=== PATIENT | male | born 2000 | race African-American/Black ===

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

== ENCOUNTER 2018-05-24 16:06 | Emergency (ER) | payer OTHER ==
[2018-05-24 16:45] VITALS: BP 129/81
[2018-05-24 16:57] LABS: ABS Basophils 0.1 10^3/ul (0-0.2); ABS Eosinophils 0.4 10^3/ul (0-0.6); ABS Lymphocytes 1.7 10^3/ul (1.0-4.8); ABS Monocytes 0.6 10^3/ul (0-0.8); ABS Neutrophils 3.2 10^3/ul (1.5-7.7); ABS Nucleated RBC 0 10^3/ul; Eosinophil % 6.6 % (0-6); Hematocrit 39 % (42-52); Hemoglobin 12.7 g/dl (14.0-18.0); Lymphocyte % 27.9 % (25-47); Mean Corpuscular HGB Conc 33 g/dl (31-36); Mean Corpuscular Hemoglobin 27 pg (27-31); Mean Corpuscular Volume 82 fL (80-94); Mean Platelet Volume 7.7 um3 (7.4-10.4); Nucleated Red Blood Cells % 0.1; Platelet Count 316 10^3/ul (150-450); Red Blood Count 4.72 10^6/ul (4.00-5.40); Red Cell Distribution Width 15 % (10.5-15)
[2018-05-24 17:14] LABS: EGFR Non-African American 114.6 (>60)
--- NOTE | 2018-05-24 20:21 | ED ---
Jeremy Monzon Natalie, scribed for Al Mayer MD on 05/24/18 at 1654 . Neck Pain - HPI Summary HPI Summary: The patient is a 17 [facility] that started a few days ago. He has been having some episodes of diarrhea with some hematochezia and abd distension with BM. He additionally c/o yellowing of eyes, fatigue, dehydration, and weight loss. He denies swelling in knees and fever. The pt is concerned that this is related to his Crohn's disease. He is often in pain but states that this pain is worse than usual. He rates the pain 6/10 in severity. The pt has had an ileoscopy a few years ago, which has relieved his pain dramatically. He does not take any medication for Crohn's now, but he used to take Humira, Prevacid, and Mercaptopurine before his surgery. His GI doctor is Dr. Garrett. - History of Current Complaint Chief Complaint: EDNeckComplaint Stated Complaint: CROHNS/WEAKNESS/FATIGUE Time Seen by Provider: 05/24/18 16:28 Hx Obtained From: Patient Onset/Duration Of Injury/Symptoms: Days Timing: Constant, Lasting Days Onset/Duration: Sudden Onset, Still Present Severity Initially: Mild Severity Currently: Mild Pain Intensity: 6 Pain Scale Used: 0-10 Numeric Location: Diffuse Aggravating Factors: Nothing Alleviating Factors: Nothing Associated Signs & Symptoms: Positive: Negative - hematochezia. Negative: Fever - Allergies/Home Medications Allergies/Adverse Reactions: Allergies Allergy/AdvReac Type Severity Reaction Status Date / Time Adhesive Tape Allergy Rash And Verified 07/17/17 14:53 [Tegaderm Dressing] Itching bee venom protein (honey bee) Allergy Swelling Verified 05/24/18 16:14 chlorhexidine Allergy Rash And Verified 05/24/18 16:14 Itching NSAIDS (Non-Steroidal Allergy GI Upset Verified 05/24/18 16:14 Anti-Inflamma PMH/Surg Hx/FS Hx/Imm Hx Endocrine/Hematology History: Denies: Hx Anticoagulant Therapy, Hx Diabetes, Hx Thyroid Disease Cardiovascular History: Denies: Hx Hypertension, Hx Pacemaker/ICD Respiratory History: Reports: Hx Asthma - inhaler Denies: Hx Chronic Obstructive Pulmonary Disease (COPD) GI History: Reports: Hx Crohn's Disease, Hx Gastroesophageal Reflux Disease Denies: Hx Cirrhosis, Hx Diverticulosis, Hx Gall Bladder Disease, Hx Gastrointestinal Bleed, Hx Hiatal Hernia, Hx Irritable Bowel, Hx Jaundice, Hx Obstructive Bowel, Hx Ileostomy, Hx Pyloric Stenosis, Hx Ulcer, Other GI Disorders History: Denies: Hx Renal Disease Neurological History: Denies: Hx Dementia, Hx Seizures Psychiatric History: Reports: Hx Attention Deficit Hyperactivity Disorder Denies: Hx Substance Abuse - Surgical History Surgery Procedure, Year, and Place: hernia removed as an infant Hx Anesthesia Reactions: No - Immunization History Date of Tetanus Vaccine: 2017 Infectious Disease History: No Infectious Disease History: Denies: Hx Hepatitis, Hx Human Immunodeficiency Virus (HIV), Traveled Outside the [place] in Last 30 Days - Family History Known Family History: Positive: Other - Crohn's Disease (mother) - Social History Alcohol Use: None Hx Substance Use: No Substance Use Type: Reports: None Hx Tobacco Use: No Smoking Status (MU): Never Smoked Tobacco Have You Smoked in the Last Year: No Review of Systems Positive: Fatigue, Other - dehydrated, weight loss. Negative: Fever Eyes: Other - yellowing to eyes Positive: Diarrhea, Other - distension in abd before BM, weight loss, hematochezia Musculoskeletal: Negative - no swelling in knees Positive: Other - neck pain All Other Systems Reviewed And Are Negative: Yes Physical Exam - Summary Physical Exam Summary: Appearance: Well appearing, no pain distress Skin: warm, dry, reflects adequate perfusion Head/face: normal Eyes: EOMI, ARNOLD ENT: normal Neck: supple, non-tender Respiratory: CTA, breath sounds present Cardiovascular: RRR, pulses symmetrical Abdomen: non-tender, soft, surgical scar on RLQ Bowel Sounds: present Musculoskeletal: normal, strength/ROM intact Neuro: normal, sensory motor intact, A&Ox3 Triage Information Reviewed: Yes Vital Signs On Initial Exam: Initial Vitals Temp Pulse Resp BP Pulse Ox 99.2 F 58 18 130/70 99 05/24/18 16:09 05/24/18 16:09 05/24/18 16:09 05/24/18 16:09 05/24/18 16:09 Vital Signs Reviewed: Yes Diagnostics - Vital Signs Vital Signs Temp Pulse Resp BP Pulse Ox 05/24/18 16:09 99.2 F 58 18 130/70 99 - Laboratory Lab Results: Lab Results 07/01/18 07/01/18 Range/Units 16:50 16:50 WBC 6.0 (3.5-10.8) 10^3/ul RBC 4.72 (4.00-5.40) 10^6/ul Hgb 12.7 L (14.0-18.0) g/dl Hct 39 L (42-52) % MCV 82 (80-94) fL MCH 27 (27-31) pg MCHC 33 (31-36) g/dl RDW 15 (10.5-15) % Plt Count 316 (150-450) 10^3/ul MPV 7.7 (7.4-10.4) um3 Neut % (Auto) 54.4 (38-83) % Lymph % (Auto) 27.9 (25-47) % [place] % (Auto) 9.9 H (0-7) % Eos % (Auto) 6.6 H (0-6) % Baso % (Auto) 1.2 (0-2) % Absolute Neuts (auto) 3.2 (1.5-7.7) 10^3/ul Absolute Lymphs (auto) 1.7 (1.0-4.8) 10^3/ul Absolute Monos (auto) 0.6 (0-0.8) 10^3/ul Absolute Eos (auto) 0.4 (0-0.6) 10^3/ul Absolute Basos (auto) 0.1 (0-0.2) 10^3/ul Absolute Nucleated RBC 0 10^3/ul Nucleated RBC % 0.1 Sodium 140 (135-145) mmol/L Potassium 3.9 (3.5-5.0) mmol/L Chloride 104 (101-111) mmol/L Carbon Dioxide 30 (22-32) mmol/L Anion Gap 6 (2-11) mmol/L BUN 9 (6-24) mg/dL Creatinine 0.86 (0.67-1.17) mg/dL Est GFR ( Amer) 138.6 (>60) Est GFR (Non-Af Amer) 114.6 (>60) BUN/Creatinine Ratio 10.5 (8-20) Glucose 92 (70-100) mg/dL Calcium 8.8 (8.6-10.3) mg/dL C-Reactive Protein 17.28 H (<8.01) mg/L Result Diagrams: 05/24/18 16:50 05/24/18 16:50 Lab Statement: Any lab studies that have been ordered have been reviewed, and results considered in the medical decision making process. Re-Evaluation - Re-Evaluation First Eval Re-Evaluation Time: 17:17 Change: Unchanged - I spoke with the pt about blood work. He will be discharged home. Neck Course/Dx - Course Course Of Treatment: Patient presents with wanting laboratories to check on his Crohn's disease. He states he may have had some difficulties lately but mostly he is here because his mother thought he looked off. Laboratories show a slightly elevated CRP at 17 with normal white count. His hemoglobin is the best it's been on record here. His electrolytes are all within normal range. He has no pain at present or fever. He'll follow-up with his GI doctor tomorrow. - Diagnoses Provider Diagnoses: Crohn's disease Discharge - Sign-Out/Discharge Documenting (check all that apply): Discharge/Admit/Transfer - Pt will be discharged home. - Discharge Plan Condition: Good Disposition: HOME Patient Education Materials: Crohn Disease (ED) Referrals: Eulalio Garcia MD [Medical Doctor] - Jr Trevino MD [Primary Care Provider] - Additional Instructions: Call in the morning to follow-up with her process development associate. Her blood counts are better than they have been however at this facility. Return if fever, increased abdominal pain, worse, new symptoms or other concerns. - Billing Disposition and Condition Condition: GOOD Disposition: Home The documentation as recorded by the Jeremy heart Natalie accurately reflects the service I personally performed and the decisions made by me, Al Mayer MD.
== END 2018-05-24 17:35 | disposition home or self-care (01) ==
LOC: ED 16:06
DX: K50.90 Crohn's disease, unspecified, without complications (principal); M54.2 Cervicalgia; R53.83 Other fatigue
CPT/HCPCS: 36415; 80048; 85025; 86140; 99282

== ENCOUNTER 2018-09-28 16:43 | Emergency (ER) | payer OTHER ==
[2018-09-28 17:30] VITALS: BP 144/72
[2018-09-28] MEDS ORDERED: Tetan/Diph/Pertus SYR(Tdap)* 0.5 ML SYR(BOOSTRIX) use SYR IM ONE (17:43)
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
== END 2018-09-28 19:10 | disposition home or self-care (01) ==
LOC: UCEAST 16:43
DX: S09.90XA Unspecified injury of head, initial encounter (principal); S00.01XA Abrasion of scalp, initial encounter; Y04.8XXA Assault by other bodily force, initial encounter; Y92.9 Unspecified place or not applicable; Z23 Encounter for immunization; Z88.6 Allergy status to analgesic agent; Z91.030 Bee allergy status; Z91.048 Other nonmedicinal substance allergy status
CPT/HCPCS: 36415; 70450; 70486; 72125; 86703; 86706; 86803; 87340; 90471; 90715; 99212; G0463

== ENCOUNTER 2020-02-07 23:21 | Emergency (ER) | payer OTHER ==
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
--- OUTSIDE RECORDS SUMMARY | 2020-02-07 23:57 | XMS REPORT | Continuity of Care Document ---
:2000 External Reference #:[id number] Author Name RHINA Hernadez Address [address] [place] [address] Care Team Providers Name Role Phone [facility] Team Information [facility] - Pediatric Gastroenterology Jr Trevino MD - Family Care Team Information [facility] Medicine [facility] - Oncology Care Team Information [facility] [phone] Calvin Garcia - Pediatric Cardiology Care Team Information [facility] Problems Active Problems Provider Date Crohn's disease of small intestine Claire Roque M.D. Onset: 10/14/2011 Nocturnal enuresis RHINA Vargas Onset: 10/14/2011 Acute sinusitis Horacio Royal M.D. Onset: 08/03/2012 Acute pharyngitis Horacio Royal M.D. Onset: 08/03/2012 Asthma without status asthmaticus Horacio Royal M.D. Onset: 08/03/2012 Well child visit Jr Trevino M.D. Onset: 01/11/2013 Septicemia Unspecified Jr Trevino M.D. Onset: 02/11/2014 Edema Horacio Royal M.D. Onset: 02/22/2014 Pain in limb Horacio Royal M.D. Onset: 02/22/2014 Eruption Jr Trevino M.D. Onset: 04/27/2014 Pneumonia Jr Trevino M.D. Onset: 01/15/2016 Attention-deficit hyperactivity disorder, Jr Trevino M.D. Onset: other type Anxiety state Jr Trevino M.D. Onset: 04/21/2019 Mild intermittent asthma Horacio Royal M.D. Onset: 10/28/2017 Acute maxillary sinusitis Jr Trevino M.D. Onset: 11/29/2016 Crohn's disease of large bowel Jr Trevino M.D. Onset: 02/14/2016 Social History Type Date Description Comments Sex Unknown Tobacco Use Start: Unknown Nonsmoker Smoking Status Reviewed: 02/24/18 Nonsmoker Allergies, Adverse Reactions, Alerts Active Allergies Reaction Severity Comments Date NKDA 08/16/2011 Bee Sting 05/16/2015 Chlorahexadine rash 09/02/2017 Tape rash--can use paper tape 09/02/2017 Medications Active Medications SIG Qnty Indications Ordering Date Provider Pantoprazole Sodium Please specify 1Tablet Donavan Sargent 11/24/2019 Vishnu hawk M.D. 40mg Tablets DR refills and quantity Albuterol Sulfate Take 1-2 Puffs 4 6.7Inhaler J45.998 Jr Isabel 09/08/2019 HFA Times A Day as Virgilio Trevino 108(90Base) Needed mcg/Act Aerosol Ativan one tablet by 60tabs F41.9 03/09/2019 0.5mg mouth 2 times a Melodie, EDGE CUTTING MACHINE OPERATOR Tablets day as needed for anxiety Airduo Respiclick one inhalation 3units J06.9 02/04/2019 232/14 twice daily Melodie, EDGE CUTTING MACHINE OPERATOR 232-14mcg/Act Aerosol Peridex swish and spit 473ml K02.9 01/05/2019 0.12% 15ml for 30 Melodie, EDGE CUTTING MACHINE OPERATOR Solution seconds twice daily after brushing teeth Cetirizine HCL take 1 tablet by 30tabs 11/26/2016 10mg mouth every day Melodie, EDGE CUTTING MACHINE OPERATOR Tablets Remeron take 1/2 tablet 30tabs 10/23/2016 15mg by mouth at Melodie, EDGE CUTTING MACHINE OPERATOR Tablets bedtime for sleep History Medications Pantoprazole Sodium Please specify Devi Sargent 11/24/2019 - Vishnu hawk M.D. 12/24/[address] refills and quantity Azithromycin 2 take by mouth 6tabs J06.9 11/05/2019 - 250mg tablets today,then Melodie EDGE CUTTING MACHINE OPERATOR 12/24/2019 Tablets one tab days 2-5 until finished Medrol dose-pack as 1pack J06.9 [place] 11/05/2019 - 4mg Tablets instructed Melodie EDGE CUTTING MACHINE OPERATOR 12/24/2019 Medications Administered in Office Medication SIG Qnty Indications Ordering Provider Date Injection Rocephrin 250 MG Elissa Zelaya NP 06/03/2018 Injection Injection Subcutaneous Or Elissa Zelaya NP 06/03/2018 Intramuscular Injection TB Intradermal Test Isa Ramey 02/13/2012 Injection Immunizations CPT Code Status Date Vaccine Lot # [id number] Given 06/12/2017 Tdap Tetanus, W Pertussis [id number] 34524 Given 09/10/2016 Meningococcal Conjugate Vaccine,Serogroups For [id number] Intramuscular Use 71667 Given 09/19/2010 Varicella (Chicken Pox) Immunization [id number] 66095 Given 09/19/2010 Tdap Tetanus, W Pertussis [id number] 34279 Given 08/09/2004 Pediarix (dTap, ipv , & hep b) 70848 Given 08/09/2004 MMR Virus Immunization 84772 Given 08/16/2003 Hepatitis B Immunization, [place]-19 Years 15350 Given 11/09/2002 DTaP Immunization 98664 Given 11/09/2002 IPV Inactive Poliovirus Vaccine 30661 Given 11/09/2002 Hepatitis B Immunization, [place]-19 Years 90180 Given 08/11/2002 IPV Inactive Poliovirus Vaccine 82844 Given 07/29/2002 DTaP Immunization 76252 Given 07/29/2002 (Hib) Hemoplilus Influenza B 55742 Given 08/26/2001 Varicella (Chicken Pox) Immunization 69377 Given 08/26/2001 MMR Virus Immunization 44355 Given 08/26/2001 DTaP Immunization 41955 Given 01/16/1999 IPV Inactive Poliovirus Vaccine 66593 Given 01/16/1999 DTaP Immunization 13444 Given 01/16/1999 (Hib) Hemoplilus Influenza B Vital Signs Date Vital Result Comment 12/24/2019 2:58pm BP Systolic 102 mmHg BP Diastolic 80 mmHg Heart Rate 54 /min Body Temperature 99.0 F Height 68 inches 5'8" Weight 155.00 lb BMI (Body Mass Index) 23.6 kg/m2 11/05/2019 3:10pm BP Systolic 102 mmHg BP Diastolic 72 mmHg Heart Rate 68 /min Body Temperature 98.8 F Respiratory Rate 16 /min Height 68 inches 5'8" Weight 149.00 lb BMI (Body Mass Index) 22.7 kg/m2 Results Test Acquired Date Facility Test Result H/L Range Note Laboratory test 12/24/2019 [facility] Quickstrep Negative Negative finding (607)- - HIV 1&2 Antibody Screen (a) <pending> Negative Flu A&B (Fma) 12/24/2019 [facility] Influenza A Negative (607)- - Influenza B Negative Comprehensive Metabolic 09/08/2019 [facility](a) Sodium 140 mEq/L 134-149 Prof Potassium 4.7 mEq/L 3.6-5.5 Chloride 101 mEq/L 94-112 Carbon Dioxide 28 mEq/L 21-32 Glucose 82 mg/dL 70-105 BUN 11 mg/dL 6-26 Creatinine 1.0 mg/dL 0.6-1.4 BUN/Creat Ratio 11.0 CALC 8.0-36.0 Calcium 9.9 mg/dL 8.6-10.2 Total Protein 7.4 g/dL 6.4-8.3 Albumin 4.6 g/dL 3.8-5.5 Globulin 2.8 g/dL 2.0-4.8 A/G Ratio 1.6 CALC 0.6-2.3 Alk. Phosphatase 79 U/L 22-95 Alt (SGPT) 12 U/L 7-35 Ast (Sgot) 20 U/L 5-34 Total Bilirubin 0.4 mg/dL 0.2-1.3 GFR Non- >60 ml/min/1.73m^ >=60 GFR >60 ml/min/1.73m^ >=60 Laboratory test 09/08/2019 [facility] Sedimentation Rate 2mm finding (607)- - CBC Electronic (a 09/08/2019 [facility] WBC 5.84 4.0-10.0 New) (607)- - RBC 5.53 3.93-6.0 Hemoglobin (Fma/CMC/CTX) 15.4 g/dL 12.0-17.0 Hematocrit (Fma/CMC/CTX) 45.4 % 35.0-50.0 Mean Corpuscular Vol 82.1 fL 80-95 Mean Corpuscular Hemoglobin 27.8 pg 25.6-32.2 Mean Corpuscular Hemo Concen 33.9 g/dL 32.2-36.0 Platelets 289 10^3/ul 163-400 RDW-CV 13.3 11.6-14.4 Mean Platelet Volume 10.0 fL 8.0-12.4 Absolute Neutrophils BLD 3.59 1.56-6.13 Absolute Lymphocytes 1.07 Low 1.18-3.74 Absolute Monocytes BLD Auto 0.69 0.24-0.82 Absolute Eos Blood 0.40 0.04-0.54 Absolute Basophils 0.08 0.01-0.08 Neutrophil % 61.5 % 34.0-70.0 Lymph% 18.3 % Low 20.0-52.0 Monocytes % 11.8 % 5.0-12.0 Eos % 6.8 % 0.7-7.0 Basophil% 1.4 % High 0-1.2 Laboratory test 09/08/2019 [facility] HIV 1&2 Antibody Negative Negative finding (607)- - Screen (Fma) Laboratory test 09/08/2019 [facility] Syphillis Igg Negative Negative 1 finding W/Reflex RPR C Reactive Protein 22.42 mg/L High <8.01 2 1 [id number] 2 sst 2 [id number] 2 sst Procedures Date Code Description Status 03/19/2011 86835325 Colonoscopy Completed Medical Devices Description No Information Available Encounters Type Date Location Provider Dx Diagnosis Office Visit 11/05/2019 3:30p Main Office RHINA Hernadez J45.998 Other asthma J06.9 Acute upper respiratory infection, unspecified K50.00 Crohn's disease of small intestine without complications K02.9 Dental caries, unspecified Office Visit 09/08/2019 3:10p Main Office Jr Tristan1.9 Anxiety disorderUriel M.D. unspecified K50.00 Crohn's disease of small intestine without complications J45.998 Other asthma Z11.3 Encntr screen for infections w sexl mode of transmiss Z11.4 Encounter for screening for human immunodeficiency virus Assessments Date Code Description Provider 12/24/2019 R09.81 Nasal congestion RHINA Hernadez 12/24/2019 K02.9 Dental caries, unspecified Melodie, EDGE CUTTING MACHINE OPERATOR 12/24/2019 Z11.3 Encounter for screening for infections Melodie, EDGE CUTTING MACHINE OPERATOR with a predominantly sexual mode of transmission 11/05/2019 J45.998 Other asthma Melodie, EDGE CUTTING MACHINE OPERATOR 11/05/2019 J06.9 Acute upper respiratory infection, Melodie, EDGE CUTTING MACHINE OPERATOR unspecified 11/05/2019 K50.00 Crohn's disease of small intestine without Melodie, EDGE CUTTING MACHINE OPERATOR complications 11/05/2019 K02.9 Dental caries, unspecified Melodie, EDGE CUTTING MACHINE OPERATOR 09/08/2019 F41.9 Anxiety disorder, unspecified Jr Trevino M.D. 09/08/2019 K50.00 Crohn's disease of small intestine without Jr Trevino M.D. complications 09/08/2019 J45.998 Other asthma Jr Trevino M.D. 09/08/2019 Z11.3 Encounter for screening for infections Jr Trevino M.D. with a predominantly sexual mode of transmission 09/08/2019 Z11.4 Encounter for screening for human Jr Trevino M.D. immunodeficiency virus [HIV] Plan of Treatment No Information Available Functional Status Description No Information Available Mental Status Description No Information Available Referrals Refer to Reason for Referral Status Appt Date Neto Arroyo MD Assess for medical marijuana. Office note, Scheduled 07/2019 labs and triage faxed. [address] [place], [place] [id number] [phone] [facility]--Crohns [facility] [address] [facility] [address] [place] [address] [phone] [facility] Toscano Consult and treat. Office note and triage faxed. LT Sent [address] [facility], [address] [place], [place] [id number] [phone] Jr Trevino MD Created [address] [place] [address] [id number] [phone]
[2020-02-08 00:24] VITALS: BP 145/75
== END 2020-02-08 00:28 | disposition home or self-care (01) ==
LOC: ED 23:21
DX: S71.101A Unspecified open wound, right thigh, initial encounter (principal); S80.812A Abrasion, left lower leg, initial encounter; K21.9 Gastro-esophageal reflux disease without esophagitis; K50.90 Crohn's disease, unspecified, without complications; W34.00XA Accidental discharge from unspecified firearms or gun, initial encounter; Y92.9 Unspecified place or not applicable; Z79.52 Long term (current) use of systemic steroids; Z79.899 Other long term (current) drug therapy
CPT/HCPCS: 99282